=== PATIENT | male | born 1995 | race American Indian/Alaskan Native ===

== ENCOUNTER 2018-01-17 13:13 | Outpatient (CLI) | payer MEDICAID | END 2018-01-17 13:14 | disposition home or self-care (01) | LOC: WOUND 13:13 | PROVIDERS: ATTEND Surgery | DX: L89.214 Pressure ulcer of right hip, stage 4 (principal); L89.304 Pressure ulcer of unspecified buttock, stage 4 | CPT/HCPCS: 99215; G0463 ==

== ENCOUNTER 2018-02-25 13:18 | Outpatient (CLI) | payer MEDICAID ==
[2018-02-25] MEDS ORDERED: SILVER NITRATE TP ONE ×2 (13:56→14:21)
== END 2018-02-25 13:19 | disposition home or self-care (01) ==
LOC: WOUND 13:18
PROVIDERS: ATTEND Surgery
DX: L89.214 Pressure ulcer of right hip, stage 4 (principal); L89.304 Pressure ulcer of unspecified buttock, stage 4; G82.21 Paraplegia, complete

== ENCOUNTER 2018-04-08 09:01 | Outpatient (CLI) | payer MEDICARE | END 2018-04-08 09:02 | disposition home or self-care (01) | LOC: WOUND 09:01 | PROVIDERS: ATTEND Surgery | DX: L89.214 Pressure ulcer of right hip, stage 4 (principal); L89.304 Pressure ulcer of unspecified buttock, stage 4; G82.21 Paraplegia, complete ==

== ENCOUNTER 2019-06-14 19:47 | Inpatient (IN) | payer MEDICARE ==
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
[2019-06-14] MEDS ORDERED: SODIUM CHLORIDE 0.9% 1000 ML IV SOLN IV ONE (20:39)
[2019-06-14 20:46] LABS: Basophils % (Auto) 0.3 % (0.0-1.8); Eosinophils % (Auto) 0.2 % (0.0-4.3); Hematocrit 27.1 % (35.5-45.6); Hemoglobin 8.5 gm/dl (11.8-15.2); Lymphocytes % (Auto) 15.3 % (13.4-35.0); Mean Corpuscular HGB Conc 31 % (32-34); Monocytes # (Auto) 1.3 K/mm3 (0.0-0.8); Monocytes % (Auto) 10.4 % (0.0-7.3); Platelet Count 481 K/mm3 (140-440); Red Blood Count 4.11 M/mm3 (3.65-5.03); Red Cell Distribution Width 17.9 % (13.2-15.2)
[2019-06-14 20:47] LABS: Mean Corpuscular Volume 66 fl (84-94)
--- NOTE | 2019-06-14 20:57 | XRay Report ---
CHEST 1 VIEW 06/14/2019 8:31 PM INDICATION / CLINICAL INFORMATION: fever. COMPARISON: Chest x-ray on 07/17/2018 FINDINGS: SUPPORT DEVICES: None. HEART / MEDIASTINUM: No significant abnormality. LUNGS / PLEURA: No significant pulmonary or pleural abnormality. No pneumothorax. ADDITIONAL FINDINGS: No significant additional findings. IMPRESSION: 1. No acute findings. Signer Name: Richard Collazo MD Signed: 06/14/2019 8:53 PM Workstation Name: [id number]
[2019-06-14 21:01] LABS: Alanine Aminotransferase 5 units/L (7-56); Albumin 2.9 g/dL (3.9-5); BUN/Creatinine Ratio 20; Blood Urea Nitrogen 10 mg/dL (9-20); Calcium 9.3 mg/dL (8.4-10.2); Hemolysis Index 0
[2019-06-14] MEDS ORDERED: PIPERACIL/TAZOBACTA 4.5/NS 100 4.5 GM/100 ML VIAL IV ONE (21:05)
[2019-06-14] MEDS ORDERED: HYDROmorphone 1 MG/1 ML INJ IV ONE (21:06)
[2019-06-14] MEDS ORDERED: ONDANSETRON 4 MG/2 ML INJ IV PRN (22:45)
[2019-06-14] MEDS ORDERED: MAGNESIUM HYDROXIDE (MOM) ORAL LIQD UDC PO PRN (22:45)
[2019-06-14] MEDS ORDERED: ACETAMINOPHEN 325 MG TAB PO PRN (22:45)
[2019-06-14] MEDS ORDERED: VANCOMYCIN PHARMACY TO DOSE IV SCH (23:00)
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
[2019-06-14] MEDS ORDERED: VANCOMYCIN 1,500 MG in SODIUM CHLORIDE 0.9% 500 ML 500 ML IV ONE (23:40)
[2019-06-15] MEDS: SODIUM CHLORIDE 0.9% 1000 ML 1,000 ML IV SCH ×2 (02:04→20:18)
[2019-06-15] MEDS: MORPHINE 2 MG/1 ML INJ IV PRN ×5 (02:14→21:07)
[2019-06-15] MEDS ORDERED: HEPARIN 5,000 UNIT/1 ML VIAL SUB-Q SCH (06:00)
[2019-06-15] MEDS: PIPERACIL/TAZOBACTA 4.5/NS 100 4.5 GM/100 ML VIAL IV SCH ×2 (06:07→13:32)
[2019-06-15 06:26] LABS: Bilirubin,Urine NEG (Negative); Blood,Urine SM (Negative); Color,Urine Yellow (Yellow); Mucus,Urine FEW /HPF; Protein,Urine <15 mg/dL mg/dL (Negative)
[2019-06-15] MEDS: VANCOMYCIN/NS 1 GM/250 ML 1 GM/250 ML BAG IV SCH ×2 (08:38→16:31)
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
[2019-06-15 09:21] LABS: Basophils % (Auto) 0.3 % (0.0-1.8); Eosinophils # (Auto) 0.1 K/mm3 (0.0-0.4); Eosinophils % (Auto) 1.2 % (0.0-4.3); Hematocrit 25.4 % (35.5-45.6); Lymphocytes # (Auto) 0.5 K/mm3 (1.2-5.4); Lymphocytes % (Auto) 4.6 % (13.4-35.0); Mean Corpuscular HGB Conc 31 % (32-34); Monocytes # (Auto) 0.9 K/mm3 (0.0-0.8); Monocytes % (Auto) 8.7 % (0.0-7.3); Platelet Count 462 K/mm3 (140-440); Red Blood Count 3.87 M/mm3 (3.65-5.03); Red Cell Distribution Width 17.7 % (13.2-15.2)
[2019-06-15 09:23] LABS: Mean Corpuscular Volume 66 fl (84-94)
[2019-06-15 09:33] LABS: BUN/Creatinine Ratio 12; Blood Urea Nitrogen 6 mg/dL (9-20); Calcium 8.3 mg/dL (8.4-10.2); Hemolysis Index 13
[2019-06-15 09:35] LABS: INR 1.21 (0.87-1.13)
[2019-06-15 09:36] LABS: Partial Thromboplastin Time 42.5 Sec. (24.2-36.6)
[2019-06-15] MEDS: DOCUSATE SODIUM 100 MG CAP PO SCH ×2 (09:53→21:07)
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
[2019-06-15] MEDS: PANTOPRAZOLE 40 MG TAB PO SCH (16:26)
[2019-06-15] MEDS: MELATONIN 5 MG TAB PO PRN (21:07)
[2019-06-15] MEDS: CEFEPIME/NS 2 GM/100 ML 2 GM/100 ML BAG IV SCH (21:08)
[2019-06-16] MEDS: SODIUM CHLORIDE 0.9% 1000 ML 1,000 ML IV SCH ×3 (03:58→18:47)
[2019-06-16] MEDS: MORPHINE 2 MG/1 ML INJ IV PRN ×5 (04:42→23:44)
[2019-06-16] MEDS: DOCUSATE SODIUM 100 MG CAP PO SCH ×2 (08:59→21:00)
[2019-06-16] MEDS: CEFEPIME/NS 2 GM/100 ML 2 GM/100 ML BAG IV SCH ×2 (08:59→21:00)
[2019-06-16] MEDS: PANTOPRAZOLE 40 MG TAB PO SCH (08:59)
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
--- NOTE | 2019-06-16 15:06 | Post Operative Note ---
Pre-op diagnosis: Unstageable pressure ulcers of the left buttock and left thigh Post-op diagnosis: other (Stage 3 pressure ulcers of the left buttock and left thigh) Procedure: Debridement of left buttock and left thigh pressure ulcers Final wound measurements: 1) Left buttock - 7.9 X 12.5 X 0.3 cm 2) Left hip - 3.5 X 3.5 X 0.2 cm Anesthesia: none Surgeon: MARIO JOSHI Estimated blood loss: minimal Pathology: none Specimen disposition: discarded Condition: stable Disposition: no change
[2019-06-16] MEDS: MELATONIN 5 MG TAB PO PRN (20:56)
[2019-06-17] MEDS: SODIUM CHLORIDE 0.9% 1000 ML 1,000 ML IV SCH (01:46)
[2019-06-17] MEDS: MORPHINE 2 MG/1 ML INJ IV PRN (06:22)
[2019-06-17] MEDS: DOCUSATE SODIUM 100 MG CAP PO SCH (11:49)
[2019-06-17] MEDS: PANTOPRAZOLE 40 MG TAB PO SCH (11:49)
[2019-06-17] MEDS: CEFEPIME/NS 2 GM/100 ML 2 GM/100 ML BAG IV SCH ×2 (11:50→12:02)
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
[2019-06-17 17:12] VITALS: BP 119/67
== END 2019-06-17 19:05 | disposition home health service (06) | DRG 853 ==
LOC: ED 19:47 → 3A 22:45
PROVIDERS: ADMIT Internal Medicine Geriatric Medicine; ATTEND Internal Medicine
PROC: 0YB Anatomical Regions, Lower Extremities, Excision (ICD-10-PCS; principal; 2019-06-16)
PROC: 0YBD0ZZ Excision of Left Upper Leg, Open Approach (ICD-10-PCS; 2019-06-16)
DX: A41.9 Sepsis, unspecified organism (principal); L89.323 Pressure ulcer of left buttock, stage 3; L89.154 Pressure ulcer of sacral region, stage 4; E43 Unspecified severe protein-calorie malnutrition; T83.511A Infection and inflammatory reaction due to indwelling urethral catheter, initial encounter; E87.1 Hypo-osmolality and hyponatremia; Z68.1 Body mass index [BMI] 19.9 or less, adult; G82.20 Paraplegia, unspecified; N30.00 Acute cystitis without hematuria; Y83.8 Other surgical procedures as the cause of abnormal reaction of the patient, or of later complication, without mention of misadventure at the time of the procedure; D50.9 Iron deficiency anemia, unspecified; F12.90 Cannabis use, unspecified, uncomplicated; Y92.89 Other specified places as the place of occurrence of the external cause; Z82.49 Family history of ischemic heart disease and other diseases of the circulatory system; Z82.5 Family history of asthma and other chronic lower respiratory diseases
CPT/HCPCS: 36415; 71045; 80048; 80053; 81001; 82140; 85025; 85610; 85730; 87040; 87086; 87116; 99406; G0378; J0692; J1170; J2270; J2543; J3370; J7030; J7040

== ENCOUNTER 2020-05-17 19:27 | Inpatient (IN) | payer MEDICARE ==
[2020-05-17] MEDS ORDERED: ACETAMINOPHEN 325 MG TAB PO ONE (20:22)
--- NOTE | 2020-05-17 20:22 | Event Note ---
ED Screening Note Date of service: 05/17/20 Time: 20:21 ED Screening Note: c/o worsening chronic buttock wound with osteomyelitis + fever and tachycardia noted sepsis protocol started This initial assessment/diagnostic orders/clinical plan/treatment(s) is/are subject to change based on patients health status, clinical progression and re- assessment by fellow clinical providers in the ED. Further treatment and workup at subsequent clinical providers discretion. Patient/guardian urged not to elope from the ED as their condition may be serious if not clinically assessed and managed. Initial orders include: labs
[2020-05-17] MEDS ORDERED: SODIUM CHLORIDE 0.9% 1000 ML IV SOLN IV ONE (20:23)
[2020-05-17 20:56] LABS: Hematocrit 26.2 % (35.5-45.6); Hemoglobin 8.3 gm/dl (11.8-15.2); Mean Corpuscular HGB Conc 32 % (32-34); Platelet Count 551 K/mm3 (140-440); Red Blood Count 3.75 M/mm3 (3.65-5.03)
[2020-05-17 20:58] LABS: Mean Corpuscular Volume 70 fl (84-94); Red Cell Distribution Width 22.8 % (13.2-15.2)
[2020-05-17] MEDS ORDERED: SODIUM CHLORIDE 0.9% 1000 ML 1,000 ML IV ONE (21:03)
[2020-05-17] MEDS ORDERED: CLINDAMYCIN 600 MG/50 mL 600 MG/50 ML BAG IV ONE (21:03)
[2020-05-17] MEDS ORDERED: HYDROmorphone 1 MG/1 ML INJ IV ONE ×2 (21:03→21:05)
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
[2020-05-17 21:11] LABS: Alanine Aminotransferase 15 units/L (7-56); Albumin 2.6 g/dL (3.9-5); Blood Urea Nitrogen 9 mg/dL (9-20); Calcium 9.2 mg/dL (8.4-10.2); Hemolysis Index 22
[2020-05-17 21:21] LABS: BUN/Creatinine Ratio 23
[2020-05-17 21:30] LABS: Basophils % (Manual) 0 % (0.0-1.8); Total Cells Counted 100
[2020-05-17 21:32] LABS: Anisocytosis 2+; Platelet Estimate Consistent w Auto; Target Cells 1+
--- NOTE | 2020-05-17 22:08 | XRay Report ---
CHEST 1 VIEW INDICATION / CLINICAL INFORMATION: sepsis sirs weak. COMPARISON: 06/14/2019 FINDINGS: SUPPORT DEVICES: None. HEART / MEDIASTINUM: Stable. LUNGS / PLEURA: No significant pulmonary or pleural abnormality. No pneumothorax. ADDITIONAL FINDINGS: No significant additional findings. IMPRESSION: 1. No acute findings. No significant interval change. Signer Name: Prince Miranda MD Signed: 05/17/2020 10:04 PM Workstation Name: [id number]
--- NOTE | 2020-05-17 22:13 | XRay Report ---
PELVIS 1 VIEW(S) INDICATION / CLINICAL INFORMATION: worsening chronic right buttock infection COMPARISON: Prior CT abdomen and pelvis dated 07/17/2018 would not load at the time of this dictation and was not visualized. FINDINGS: BONES / JOINT(S): There is gross irregularity of the bilateral femoroacetabular joints and proximal f emurs with areas of ostial lysis and sclerosis, likely represents chronic infection. No acute fractur e or dislocation noted. SOFT TISSUES: Soft tissue swelling over the bilateral hips. ADDITIONAL FINDINGS: None. Signer Name: Prince Miranda MD Signed: 05/17/2020 10:09 PM Workstation Name: [id number]
[2020-05-17 23:05] LABS: Bacteria,Urine 4+ /HPF (Negative); Bilirubin,Urine NEG (Negative); Blood,Urine NEG (Negative); Color,Urine Yellow (Yellow); Mucus,Urine FEW /HPF; Protein,Urine <15 mg/dL mg/dL (Negative)
[2020-05-17] MEDS ORDERED: levoFLOXacin 500 MG TAB PO ONE (23:35)
[2020-05-18] MEDS ORDERED: ACETAMINOPHEN 325 MG TAB PO PRN (00:15)
[2020-05-18] MEDS ORDERED: ONDANSETRON 4 MG/2 ML INJ IV PRN (00:16)
[2020-05-18] MEDS: MORPHINE 15 MG TAB PO ONE ×2 (00:20→00:25)
[2020-05-18] MEDS ORDERED: MORPHINE 2 MG/1 ML INJ ONE (00:23)
[2020-05-18] MEDS ORDERED: MORPHINE 4 MG/1 ML INJ IV ONE (00:25)
[2020-05-18] MEDS ORDERED: VANCOMYCIN PHARMACY TO DOSE IV SCH (01:00)
[2020-05-18] MEDS ORDERED: VANCOMYCIN 1,250 MG in SODIUM CHLORIDE 0.9% 250ML 250 ML IV ONE (01:00)
[2020-05-18] MEDS ORDERED: PIPERACILLIN/TAZOBACTAM 3.375 3.375 GM/50 ML BAG IV SCH (02:00)
[2020-05-18] MEDS: SODIUM CHLORIDE 0.9% 1000 ML 1,000 ML IV SCH ×3 (03:46→17:38)
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
[2020-05-18] MEDS ORDERED: guaiFENesin 100 MG/5 ML ORAL LIQD PO PRN (04:29)
[2020-05-18] MEDS: VANCOMYCIN/NS 1 GM/250 ML 1 GM/250 ML BAG IV SCH ×3 (08:09→23:04)
[2020-05-18] MEDS: SODIUM HYPOCHLORITE, DAKIN'S 1/2 STRENGTH (0.25%) 473 ML TOPICAL SOLN TP SCH ×2 (13:55→21:46)
[2020-05-18] MEDS: PIPERACIL/TAZOBACTA 4.5/NS 100 4.5 GM/100 ML VIAL IV SCH ×2 (15:42→22:44)
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
--- NOTE | 2020-05-18 17:28 | Progress Note ---
Assessment and Plan 24-year-old male with a history of paraplegia and chronic sacral wound who presented to the emergency room with complaints of lower back pain, buttock pain, fever for the last few days. Patient had a T-max of 100.1 in the emergency room with white count of ~14,000. He was admitted to the hospital for infected sacral wound and started on antibiotics. Surgery is consulted for evaluation. -- UTI (urinary tract infection) on I.V ZOSYN ANTIBIOTIC, follow cx -- Infected sacral wound iv abx, consulted wound care obtain wound cx, no urgent debridement per surgery has outpt f/u at [place] --Sepsis 1. I.V NORMAL SALINE FLUID 2. I.V ZOSYN ANTIBIOTIC 3. I.V VANCOMYCIN ANTIBIOTIC 4. TYLENOL PO FOR FEVER, follow cx --Paraplegic, supportive care -- DVT Px d/c planning: asking for iv pain meds and refusing other meds. follow cx, if afebrile -possible d/c in the am Subjective Date of service: 05/18/20 Interval history: Patient seen and examined c/o back pain, tolerating diet asking for iv pain meds and refusing other meds noted no distress, slightly agitated this am discussed with RN Objective - Exam Narrative Exam: Gen.: Awake, alert, oriented 3. No apparent distress ENT: No scleral icterus or conjunctival pallor CV: S1, S2 present Respiratory: No audible wheezes Sacrum: Dressing in place. Photos from wound care rn reviewed. 29 x 27 x 7 cm extensive stage IV sacral decubitus ulcer extending to the posterior thigh and ischial region. There is some thick adherent slough/necrotic tissue present along the edges of the wound. There is chronic granulation tissue over the majority of the wound bed. - Constitutional Vitals: Vital Signs - 12hr 05/18/20 05/18/20 05/18/20 05:51 07:11 15:00 Temperature 98.0 F Respiratory 16 18 Rate Blood Pressure 84/38 94/52 O2 Sat by Pulse 96 Oximetry - Labs CBC & Chem 7: 05/17/20 20:24 05/17/20 20:24 Labs: Abnormal lab results 05/17/20 05/17/20 05/17/20 Range/Units 20:24 20:24 21:15 WBC 14.7 H (4.5-11.0) K/mm3 Hgb 8.3 L (11.8-15.2) gm/dl Hct 26.2 L (35.5-45.6) % MCV 70 L (84-94) fl MCH 22 L (28-32) pg RDW 22.8 H (13.2-15.2) % Plt Count 551 H (140-440) K/mm3 Seg Neuts % (Manual) 79.0 H (40.0-70.0) % Seg Neutrophils # Man 11.6 H (1.8-7.7) K/mm3 Sodium 131 L (137-145) mmol/L Chloride 95.3 L (98-107) mmol/L Carbon Dioxide 21 L (22-30) mmol/L Creatinine 0.4 L (0.8-1.3) mg/dL Alkaline Phosphatase 148 H (35-129) units/L Total Creatine Kinase 18 L (55-170) units/L Total Protein 9.3 H (6.3-8.2) g/dL Albumin 2.6 L (3.9-5) g/dL Urine WBC (Auto) (0.0-6.0) /HPF 10/20/20 Range/Units 22:35 WBC (4.5-11.0) K/mm3 Hgb (11.8-15.2) gm/dl Hct (35.5-45.6) % MCV (84-94) fl MCH (28-32) pg RDW (13.2-15.2) % Plt Count (140-440) K/mm3 Seg Neuts % (Manual) (40.0-70.0) % Seg Neutrophils # Man (1.8-7.7) K/mm3 Sodium (137-145) mmol/L Chloride (98-107) mmol/L Carbon Dioxide (22-30) mmol/L Creatinine (0.8-1.3) mg/dL Alkaline Phosphatase (35-129) units/L Total Creatine Kinase (55-170) units/L Total Protein (6.3-8.2) g/dL Albumin (3.9-5) g/dL Urine WBC (Auto) 7.0 H (0.0-6.0) /HPF HEART Score - HEART Score Age: < 45 Risk factors: No known risk factors Troponin: < normal limit - Critical Actions Critical Actions: 0-3 pts:0.9-1.7%risk of adverse cardiac event.Candidate for discharge
[2020-05-18] MEDS: HYDROcodone/ACETAMINOPHEN 5-325 MG TAB PO PRN (17:38)
[2020-05-19] MEDS: HYDROcodone/ACETAMINOPHEN 5-325 MG TAB PO PRN (00:48)
[2020-05-19] MEDS: SODIUM CHLORIDE 0.9% 1000 ML 1,000 ML IV SCH ×2 (04:33→09:32)
[2020-05-19] MEDS: PIPERACIL/TAZOBACTA 4.5/NS 100 4.5 GM/100 ML VIAL IV SCH ×2 (05:07→14:28)
[2020-05-19] MEDS: VANCOMYCIN/NS 1 GM/250 ML 1 GM/250 ML BAG IV SCH ×2 (09:32→16:47)
[2020-05-19] MEDS: SODIUM HYPOCHLORITE, DAKIN'S 1/2 STRENGTH (0.25%) 473 ML TOPICAL SOLN TP SCH (10:45)
--- NOTE | 2020-05-19 11:59 | Discharge Summary ---
Providers - Providers Date of Admission: 05/17/20 23:12 Date of discharge: 05/19/20 Attending physician: PRABHU CANDELARIO MD 05/17/20 21:05 Consult to Physician [CONS] Urgent Comment: Dr. Rene spoke with Dr. Torrez @ 2130 Consulting Provider: JOHN TORREZ Physician Instructions: Reason For Exam: infected wound 05/17/20 21:31 Consult to Physician [CONS] Urgent Comment: Dr. Rene spoke with Dr. Torrez @ 2130 Consulting Provider: JOHN TORREZ Physician Instructions: Reason For Exam: infected wound 05/18/20 00:16 Consult to Wound/ET Nurse [CONS] Routine Reason For Exam: wound eval Primary care physician: SENIOR ADMINISTRATIVE SERVICES OFFICER Hospitalization Reason for admission: UTI, chronic decubitus ulcer, paraplegia Condition: Serious Hospital course: 24-year-old male with a history of paraplegia and chronic sacral wound who presented to the emergency room with complaints of lower back pain, buttock pain , fever for the last few days. Patient had a T-max of 100.1 in the emergency room with white count of ~14,000. He was admitted to the hospital for infected sacral wound and started on antibiotics. Surgery is consulted for evaluation. -- UTI (urinary tract infection) -Was treated with IV Zosyn while inpatient and was discharged with Ceftin -- Infected sacral wound iv abx was given while inpatient, consulted wound care obtain wound cx, no urgent debridement per surgery has outpt f/u at [place] --Paraplegic, supportive care -- DVT Px Patient was doing well, he was only requesting IV pain medication and does not want to take p.o. He said he does not need pain medication at home because he is using marijuana that helps to control the pain. Patient has low blood pressure which she states is normally low and does not have any symptoms. Patient discharged home with advised to have follow-up with his [facility] wound care surgeon. Disposition: TO HOME OR SELFCARE Time spent for discharge: 34 minutes - Discharge Diagnoses (1) Decubitus ulcer of sacral region, stage 4 Status: Acute (2) Infected wound Status: Acute (3) Paraplegia Status: Acute (4) SIRS (systemic inflammatory response syndrome) Status: Acute (5) UTI (urinary tract infection) Status: Acute Core Measure Documentation - Palliative Care Palliative Care/ Comfort Measures: Not Applicable - Core Measures Any of the following diagnoses?: none Exam - Physical Exam Narrative exam: Not in cardiopulmonary distress. The patient appeared well nourished and normally developed. Vital signs as documented. Head exam is unremarkable. No scleral icterus . Neck is without jugular venous distension, thyromegaly, or carotid bruits. Lungs are clear to auscultation. Cardiac exam reveals regular rate and Rhythm. Abdominal exam reveals normal bowel sounds, nontender, no organomegaly. Extremities are nonedematous and both femoral and pedal pulses are normal. Sacral decubitus ulcer SOAKERS SUPERVISOR: Alert and oriented 3. Paraplegic. - Constitutional Vitals: Temp Pulse Resp BP Pulse Ox 97.6 F 72 16 88/37 100 05/19/20 03:35 05/19/20 06:00 05/19/20 03:35 05/19/20 03:35 05/18/20 23:16 Plan Activity: advance as tolerated Weight Bearing Status: Non-Weight Bearing Diet: regular Additional Instructions: Please follow-up with your wound surgeon at [facility] Follow up with: PRIMARY MD ADAM [Primary Care Provider] - 3-5 Days Prescriptions: cefUROXime [Ceftin] 500 mg PO Q12H 5 Days #20 tablet
[2020-05-19] MEDS: MORPHINE 2 MG/1 ML INJ IV PRN ×2 (12:09→16:50)
[2020-05-19 15:26] LABS: Hematocrit 22.9 % (35.5-45.6); Hemoglobin 7.3 gm/dl (11.8-15.2); Mean Corpuscular HGB Conc 32 % (32-34); Mean Corpuscular Volume 70 fl (84-94); Platelet Count 457 K/mm3 (140-440); Red Blood Count 3.26 M/mm3 (3.65-5.03)
[2020-05-19 15:30] LABS: Blood Urea Nitrogen 3 mg/dL (9-20); Calcium 7.8 mg/dL (8.4-10.2); Hemolysis Index 0
[2020-05-19 15:36] LABS: Red Cell Distribution Width 22.2 % (13.2-15.2)
[2020-05-19 15:40] LABS: BUN/Creatinine Ratio 10
[2020-05-19 15:41] LABS: Eosinophils # (Auto) 0.3 K/mm3 (0.0-0.4); Eosinophils % (Auto) 4.9 % (0.0-4.3); Monocytes # (Auto) 0.4 K/mm3 (0.0-0.8); Monocytes % (Auto) 5.2 % (0.0-7.3)
[2020-05-19 15:42] LABS: Basophils % (Auto) 0.5 % (0.0-1.8); Lymphocytes # (Auto) 0.9 K/mm3 (1.2-5.4); Lymphocytes % (Auto) 12.4 % (13.4-35.0)
[2020-05-19 15:43] LABS: Anisocytosis 1+; Hypochromasia 2+
[2020-05-19 21:15] VITALS: BP 102/52
== END 2020-05-19 20:30 | disposition home or self-care (01) | DRG 871 ==
LOC: ED 19:27 → 4A 23:12
PROVIDERS: ADMIT Internal Medicine; ATTEND Internal Medicine
DX: A41.9 Sepsis, unspecified organism (principal); L89.154 Pressure ulcer of sacral region, stage 4; E43 Unspecified severe protein-calorie malnutrition; G82.20 Paraplegia, unspecified; N39.0 Urinary tract infection, site not specified; M86.9 Osteomyelitis, unspecified; L08.9 Local infection of the skin and subcutaneous tissue, unspecified
CPT/HCPCS: 36415; 71045; 72170; 80048; 80053; 81001; 82140; 82550; 83735; 85007; 85025; 87040; 87076; 87086; 87116; 87186; 93005; 96365; 96375; G0378; A6260; J1170; J2270; J2543; J3370; J7030; J7050